=== PATIENT | male | born 1975 | race Caucasian/White ===

== ENCOUNTER → 2018-10-06 | Day surgery (SDC) | payer BC ==
[~2018-10-06] VITALS: Ht 175.3 cm; Wt 90.7 kg
[~2018-10-06] MED LIST: DIOVAN160 MG PO; NORCO 5-325 TA1 EACH PO; SERTRALINE HCL100 MG PO; SIMPONI100 MG/11 SUBQ
--- NOTE | ~2018-10-06 | O ---
[facility] [place] [address] OPERATIVE REPORT Name: SAUMYA MCMAHAN JR Room #: REG [facility].#: [id number] Admission: 10/06/18 Attend Phys: Jose Luis Irby MD Discharge: Date of : 71 Report #: [id number] THIS REPORT FOR: //name// CC: Jose Luis Orlando DATE OF SERVICE: 10/06/2018 PREOPERATIVE DIAGNOSIS: Left knee possible medial meniscus tear versus loose body. POSTOPERATIVE DIAGNOSES: 1. Grade 4 chondromalacia of the medial femoral condyle. 2. Grade 4 chondromalacia of the lateral femoral condyle and lateral tibial plateau with unstable articular cartilage flaps. 3. 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 PROCEDURE: Left knee arthroscopy with chondroplasty of the medial femoral condyle as well as the lateral femoral condyle and lateral tibial plateau. SURGEON: Jose Luis Irby MD. SURVEILLANCE SYSTEMS ENGINEER: Frances Reynoso PA-C. ANESTHESIA: LMA. TOURNIQUET TIME: 21 minutes. COMPLICATIONS: None. SPECIMENS: None. CONDITION UPON LEAVING THE OPERATING ROOM: Stable. INDICATIONS FOR PROCEDURE: The patient is a 43-year-old gentleman who has had left knee pain and swelling. He has noted mechanical symptoms in the knee including locking and catching. He has had a history of a previous ACL reconstruction and symptoms were consistent with either a meniscus tear or loose body and after discussion with him, he elected for left knee arthroscopy with meniscectomy and debridement as needed. DESCRIPTION OF PROCEDURE: Risks, benefits, alternatives, complications were discussed in detail with the patient including but not limited to risk of anesthesia, risk of damage to nerves, arteries, blood vessels, risk for infection, bleeding, risk for continued knee pain, need for reoperation. Informed consent was obtained from the patient. Left knee was appropriately [address] [address] OPERATIVE REPORT Name: SAUMYA MCMAHAN Room #: REG [facility]#: [id number] Admission: 10/06/18 Attend Phys: Jose Luis Irby MD Discharge: Date of : 71 Report #: [id number] marked in the preoperative holding area. IV Ancef was given for preoperative antibiotics. He was brought to the operating room, placed in supine position on operating room table. LMA anesthesia was induced without complication. Tourniquet was placed on the left thigh. Left lower extremity was prepped and draped in normal sterile fashion. Timeout was performed properly identifying the patient and procedure as well as the instrumentation. All in the operating room were in agreement. Left lower extremity was exsanguinated, tourniquet was inflated. Tourniquet time was 21 minutes. Standard anterolateral portal was established with an 11 blade through the skin. Arthroscope was introduced into the patellofemoral compartment, diagnostic arthroscopy was undertaken. Patellofemoral compartment demonstrated grade 3 chondromalacia. Medial gutter was visualized and found to be without pathology. Medial compartment was visualized and a medial portal was established under arthroscopic visualization. Probe was introduced in the medial compartment. There was noted to be grade 3-4 chondromalacia of the medial femoral condyle with unstable cartilaginous flaps. This was smoothed back with oscillating shaver. Medial meniscus was intact without tear. Notch was visualized and found to have a previously reconstructed ACL with partial attenuation of the reconstruction. Lateral compartment was visualized and found to have grade 4 chondromalacia of the lateral tibial plateau as well as the lateral femoral condyle with large unstable cartilaginous flaps on the femur and the tibia. These were smoothed back with arthroscopic biter as well as shaver. After this, the scope was placed back in the patellofemoral compartment and all fluid was allowed to drain from the knee. Knee was injected with 10 mL of 0.5% Marcaine. Incision was closed with 3-0 nylon. Soft dressing of Adaptic, 4 x 4, Webril, Zachary wrap were applied. The patient tolerated this procedure well and went to recovery room under care of anesthesia postoperatively. By: [id number] Jose Luis Irby MD /elaine
--- NOTE | ~2018-10-06 | EKG ---
[address] [address] ELECTROCARDIOGRAM REPORT Name: SAUMYA MCMAHAN Room #: REG [facility].#: [id number] Admission: 10/06/18 Attend Phys: Jose Luis Irby MD Discharge: Date of : 71 Report #: [id number] THIS REPORT FOR: //name// [facility] Test Date: 2018-10-06 Test Time: 13:51:52 Pat Name: SAUMYA MCMAHAN Department: Room: Gender: Supervisor [employer]: CHIP : [id number] Requested By: Jose Luis Irby Order Number: [id number] MD: Amadou Lovett Measurements Intervals [place] Rate: 62 P: 29 MT: 151 QRS: 30 QRSD: 98 T: 37 QT: 428 QTc: 435 Interpretive Statements Sinus rhythm No significant abnormality No previous ECG available for comparison Electronically Signed On 10-07-2018 8:46:53 [employer] SEATING PRESS OPERATOR by Amadou Lovett [email or web address] <ELECTRONICALLY SIGNED> By: Amadou Lovett MD, [facility] 10/07/18 [id number] Amadou Lovett MD, FACC /EPI
[2018-10-06 14:48] VITALS: BP 124/71
[2018-10-06 16:50] VITALS: BP 124/71
== END | disposition home or self-care (01) ==
LOC: OR 08:45
DX: M94.262 Chondromalacia, left knee (principal); M94.8X8 Other specified disorders of cartilage, other site; F32.9 Major depressive disorder, single episode, unspecified; Z87.442 Personal history of urinary calculi; Z98.890 Other specified postprocedural states; Z87.19 Personal history of other diseases of the digestive system; Z79.891 Long term (current) use of opiate analgesic
CPT/HCPCS: 50010; 50101; 50405; 51038; 54170; 56526; 57103; 62110; 62900; 70005